=== PATIENT | male | born 1975 | race Two or more races ===

== ENCOUNTER 2019-08-01 16:53 | Emergency (ER) | payer OTHER ==
--- NOTE | 2019-08-01 17:29 | ED ---
Neurological HPI - HPI Summary HPI Summary: 43-year-old male with no significant past medical history presents to emergency department today complaining of bilateral lower extremity "tingling" for approximately 1 week. Patient states he has now past medical history of diabetes, restricted diet, gastrointestinal surgeries, alcoholism. Patient has no neurological deficits otherwise with no tingling of the hands, no ataxia no confusion. Patient is in no acute distress. There is no obvious deformity, erythema, edema of the lower extremities bilaterally. No rash noted. Patient is otherwise well and denies fever, chest pain, abdominal pain, pain and urination, shortness of breath, dysphagia, rash, nausea, vomiting, diarrhea. - History of Current Complaint Chief Complaint: EDExtremityLower Stated Complaint: TINGLING IN BOTH FEET PER PT Time Seen by Provider: 08/01/19 17:16 Hx Obtained From: Patient Onset/Duration: Gradual Onset Timing: Constant Onset Severity: Mild Current Severity: Mild Pain Intensity: 0 Pain Scale Used: 0-10 Numeric Character: Numbness/Tingling Associated Signs and Symptoms: Positive: Numbness - Allergy/Home Medications Allergies/Adverse Reactions: Allergies Allergy/AdvReac Type Severity Reaction Status Date / Time No Known Allergies Allergy Verified 08/01/19 17:08 Home Medications: Home Medications NK [No Home Medications Reported] 08/01/19 [History Confirmed 08/01/19] PMH/Surg Hx/FS Hx/Imm Hx Infectious Disease History: No Infectious Disease History: Denies: Traveled Outside the [place] in Last 30 Days - Social History Alcohol Use: Occasionally Substance Use Type: Reports: None Smoking Status (MU): Never Smoked Tobacco Review of Systems Constitutional: Negative Eyes: Negative ENT: Negative Cardiovascular: Negative Respiratory: Negative Gastrointestinal: Negative Genitourinary: Negative Musculoskeletal: Negative Skin: Negative Positive: Numbness Psychological: Normal All Other Systems Reviewed And Are Negative: Yes Physical Exam - Summary Physical Exam Summary: Patient is in no acute distress. His pulses 2+ bilaterally. Patient has brisk capillary refill. Patient has full sensation in the lower extremities however patient has subjective diminished sensation. Patient's gait is nonantalgic and intact. No ataxia. No neurological deficits other than numbness of feet bilaterally. Triage Information Reviewed: Yes Vital Signs On Initial Exam: Initial Vitals Temp Pulse Resp BP Pulse Ox 98.1 F 54 19 136/90 100 08/01/19 17:02 08/01/19 17:02 08/01/19 17:02 08/01/19 17:02 08/01/19 17:02 Vital Signs Reviewed: Yes Appearance: Positive: Well-Appearing, No Pain Distress, Well-Nourished Skin: Positive: Warm, Skin Color Reflects Adequate Perfusion Eyes: Positive: EOMI, RAH ENT: Positive: Hearing grossly normal Respiratory/Lung Sounds: Positive: Clear to Auscultation, Breath Sounds Present Cardiovascular: Positive: RRR, S1, S2 Musculoskeletal: Positive: Strength/ROM Intact Neurological: Positive: Sensory/Motor Intact, Alert, Oriented to Person Place, Time, Normal Gait, Facial Symmetry, Speech Normal Psychiatric: Positive: Normal, Affect/Mood Appropriate AVPU Assessment: Alert Procedures - Sedation Patient Received Moderate/Deep Sedation with Procedure: No Diagnostics - Vital Signs Vital Signs Temp Pulse Resp BP Pulse Ox 08/01/19 17:02 98.1 F 54 19 136/90 100 - Laboratory Result Diagrams: 08/01/19 17:41 08/01/19 17:41 Lab Statement: Any lab studies that have been ordered have been reviewed, and results considered in the medical decision making process. Course/Dx - Course Course Of Treatment: Patient was evaluated in the emergency department today for numbness of the bilateral feet. Vitals noted and stable. Patient had no neurological deficits although he did have subjective decreased sensation in the bilateral feet. Laboratory studies returned showing no leukocytosis, no hyperglycemia, normal B12. There appears to be no significant medical problem causing his symptoms today. Patient discharged with outpatient follow-up for numbness. - Differential Dx Differential Diagnoses Neuro: Positive: Other - B12 deficiency, metabolic disorder, thiamine deficiency, diabetes - Diagnoses Provider Diagnoses: Numbness in feet Discharge ED - Sign-Out/Discharge Documenting (check all that apply): Patient Departure - Discharge Plan Condition: Stable Disposition: HOME Patient Education Materials: Peripheral Neuropathy (ED) Referrals: Nayla Ramos MD [Primary Care Provider] - 3 Days Additional Instructions: There appears to be no acute process requiring intervention at this time. Although there appears to be no serious medical problem causing your symptoms I am unsure of the origin. Please follow up with your primary care provider in 3- 5 days for further evaluation and management. Please return to this emergency Department immediately if you develop any new or worsening symptoms. - Billing Disposition and Condition Condition: STABLE Disposition: Home - Attestation Statements Provider Attestation: I was available for consult. This patient was seen by the [facility]. The patient was not presented to, seen by, or examined by me. Loco Downey MD
[2019-08-01 17:51] LABS: ABS Basophils 0.1 10^3/ul (0-0.2); ABS Eosinophils 0.1 10^3/ul (0-0.6); ABS Lymphocytes 1.8 10^3/ul (1.0-4.8); ABS Monocytes 0.6 10^3/ul (0-0.8); Eosinophil % 1.6 %; Hematocrit 47 % (42-52); Hemoglobin 16.9 g/dL (14.0-18.0); Mean Corpuscular HGB Conc 36 g/dL (31-36); Mean Corpuscular Hemoglobin 32 pg (27-31); Mean Corpuscular Volume 88 fL (80-94); Mean Platelet Volume 7.4 fL (7.4-10.4); Platelet Count 306 10^3/uL (150-450); Red Blood Count 5.28 10^6 /uL (4.18-5.48); Red Cell Distribution Width 13 % (10-15); White Blood Count 7.6 10^3/uL (3.5-10.8)
[2019-08-01 18:13] LABS: Albumin 5.1 g/dL (3.2-5.2); BUN/Creatinine Ratio 14.7 (8-20); Calcium 10.3 mg/dL (8.6-10.3); EGFR African American 89.8 (>60); EGFR Non-African American 74.2 (>60); Globulin 2.6 g/dL (2-4); Total Protein 7.7 g/dL (6.4-8.9)
[2019-08-01 19:38] VITALS: BP 134/78
== END 2019-08-01 17:30 | disposition home or self-care (01) ==
LOC: ED 16:53
DX: R20.0 Anesthesia of skin (principal); E11.9 Type 2 diabetes mellitus without complications; F10.21 Alcohol dependence, in remission
CPT/HCPCS: 36415; 80053; 82607; 85025; 99282